=== PATIENT | male | born 1995 | race Caucasian/White ===

== ENCOUNTER 2022-12-13 19:12 | Emergency (ER) | payer OTHER, SELFPAY ==
[2022-12-13 19:28] VITALS: BP 145/83; PULSE 72; RESP 16; TEMP 36.8; O2SAT 97; BMI 29.5
--- NOTE | 2022-12-13 19:39 | XR_ITS ---
The [address] [address] Patient Name: SOHAIL NEGRETE MRN: [id number] date: 1995 Sex: M Assigned Patient Location: ER Current Patient Location: ER Accession/Order Number: [id number] Exam Date: 12/13/2022 19:54 Report Date: 12/13/2022 20:18 At the request of: JOSEPH VERA Procedure: XR foot RT 2V Exam: Radiographs: XR foot RT 2V Reason for exam: injury Comparison: None XR/XR foot RT 2V IMPRESSION: Unremarkable right foot radiographs. Electronically authenticated by: IRENE THOMAS Date: 12/13/2022 20:18
--- NOTE | 2022-12-13 20:18 | PC.NURSE ---
Addendum entered by Nanci Martinez 12/13/22 20:20: can bear full weight. move extremity with pain. wants to make sure its not broken and can go back to work Original Note: patient was playing football yesterday when he rolled his right foot running forward. brusing and swellling noted to top of foot and around 3rd, 4th, 5th toes. iced it immediatly and has been taking 1000mg tylenol
--- NOTE | 2022-12-13 20:29 | ED.LOWEXI1 ---
HPI - Extremity Injury (Lower) General Chief Complaint: Extremity Injury, Lower Stated Complaint: LOWER INJURY Time Seen by Provider: 12/13/22 20:18 Source: patient Mode of arrival: walk-in History of Present Illness HPI Narrative: 27-year-old male presents for right foot pain. He hurt it yesterday playing football with [id number]. his pain is mostly at the base of the 4th and 5th toes. No other injury was sustained, no ankle pain. He's been able to walk on it. Related Data Allergies Allergy/AdvReac Type Severity Reaction Status Date / Time No Known Drug Allergies Allergy Verified 12/13/22 19:34 Review of Systems ROS Narrative A ten point review of systems is negative except as noted above. PFSH PFSH Social History Smoking status: Never smoker Exam Narrative Exam Narrative: Nurses note and vital signs reviewed and patient is not hypoxic. General: The patient appears well and in no apparent distress. Patient is resting comfortably on cart. Skin: Warm, dry, no pallor noted. There is no rash noted. Head: Normocephalic, atraumatic Eye: Normal conjunctiva, no drainage Ears, Nose, Mouth, and Throat: oral mucosa is moist. Nares patent. Cardiovascular: Regular Rate and Rhythm Respiratory: Patient is in no distress, no accessory muscle use Back: non-tender GI: nontender Musculoskeletal: right ankle has no tenderness or swelling. He has some bruising and swelling at the base of the 4th and 5th toes on the dorsum of his foot. Skin intact. Neurological: A&O, normal speech Psychiatric: Cooperative Constitutional Vital Signs, click to edit/add: Last Vital Signs Temp 98.2 F 12/13/22 19:28 Pulse 72 12/13/22 19:28 Resp 16 12/13/22 19:28 BP 145/83 H 12/13/22 19:28 Pulse Ox 97 12/13/22 19:28 O2 Del Method Room Air 12/13/22 19:28 Course Vital Signs Vital signs: Vital Signs Temperature 98.2 F 12/13/22 19:28 Pulse Rate 72 12/13/22 19:28 Respiratory Rate 16 12/13/22 19:28 Blood Pressure 145/83 H 12/13/22 19:28 Pulse Oximetry 97 12/13/22 19:28 Oxygen Delivery Method Room Air 12/13/22 19:28 Temperature 98.2 F 12/13/22 19:28 Pulse Rate 72 12/13/22 19:28 Respiratory Rate 16 12/13/22 19:28 Blood Pressure 145/83 H 12/13/22 19:28 Pulse Oximetry 97 12/13/22 19:28 Oxygen Delivery Method Room Air 12/13/22 19:28 MDM - Extremity Injury (Lower) MDM Narrative Medical decision making narrative: x-rays are negative. He is able to ambulate. He was recommended ice rest elevation and Motrin. Treatment diagnosis and follow-up were discussed with the patient. Differential Diagnosis Differential diagnosis: Likely other (toe fracture, foot fracture, foot sprain) Imaging Data right foot x-ray: Radiologist's impression: Procedure: XR foot RT 2V Exam: Radiographs: XR foot RT 2V Reason for exam: injury Comparison: None IMPRESSION: Unremarkable right foot radiographs. Electronically authenticated by: IRENE THOMAS Date: 12/13/2022 20:18 Discharge Plan Discharge Chief Complaint: Extremity Injury, Lower Clinical Impression: Right foot sprain Patient Disposition: Home, Self-Care Time of Disposition Decision: 20:29 Condition: Good Mode of Transportation: Private Vehicle Instructions: Foot Sprain (ED) Stand Alone Forms: Portal Instructions Referrals: DOROTHY JAVED [Primary Care Provider] - 1 week
== END 2022-12-13 20:45 | disposition home or self-care (01) ==
PROVIDERS: Emergency Provider Emergency Medicine; PCP Family Medicine
DX: S93.601A Unspecified sprain of right foot, initial encounter (principal); X50.9XXA Other and unspecified overexertion or strenuous movements or postures, initial encounter; Y93.61 Activity, american tackle football
CPT/HCPCS: 73620; 99283